=== PATIENT | male | born 1985 | race Caucasian/White ===

== ENCOUNTER 2020-03-25 23:59 | Emergency (ER) | payer SELFPAY ==
[2020-03-26] VITALS: BP 125/93; PULSE 100; RESP 14; TEMP 37.4; O2SAT 97; BMI 30.9
--- NOTE | 2020-03-26 00:18 | ED.VIS.GEN ---
History of Present Illness Chief Complaint: Dental Informant: Patient Onset: Yesterday Current Severity: Mild Maximum Severity: Moderate Narrative: Patient presents with left dental pain. He states the tooth was fractured sometime ago but became painful yesterday. He does not have a dentist to follow-up with. He has been taking ibuprofen as well as cannabis to help with pain. Past Medical History - Allergies and Home Meds Allergies/Adverse Reactions: Allergies No Known Allergies Allergy (Verified 03/26/20 00:00) Primary Care Physician: NOT,DEFINED [Primary Care Provider] - Past Medical History: None Smoking Status: Current every day smoker Drugs: Marijuana Review of Systems General: Denies: Chills, Fever Eyes: Denies: Visual changes - bilaterally ENT: Reports: - - Left-sided dental pain. Denies: Bilateral ear pain Cardiovascular: Denies: Chest pain Respiratory: Denies: Dyspnea, Cough Gastrointestinal: Denies: Abdominal pain Skin: Denies: Rash Neurological: Denies: Headache Hematologic: Denies: Easy bruising, Easy bleeding Allergy: Denies: Uticaria Physical Exam Vital Signs/Narrative: Vital Signs Temp Pulse Resp BP Pulse Ox 03/26/20 00:00 99.4 F H 100 14 125/93 H 97 Inital Vital Signs reviewed: Yes General: Well nourished, Well developed Head: Normocephalic Eyes: Perrl, EOMI ENT: Moist mucous membranes, - - No facial edema or erythema. Left mandibular first molar is decayed with a fracture. Mild surrounding gum edema. Posterior pharynx exam is normal. No trismus. Neck: Supple, - - Mild bilateral cervical lymphadenopathy. Cardiovascular: Regular rate, Regular rhythm, No murmurs Respiratory: No distress, CTA bilaterally Abdomen: Soft, Nontender Extremities: Nontender Skin: Normal color Neurological: Alert, Oriented x3 Psychological: Normal affect Diagnostic/Tx/Re-eval - Medical Decision Making Patient be treated with a course of Pen-Vee K. He will continue ibuprofen. Dental referral list is provided. ED Disposition - Plan for ED Patient: Disposition: Home or Assisted Living Diagnosis: Odontalgia Instructions: ED Tooth Pain Prescriptions: Penicillin V Potassium 500 mg PO 4X/DAY #40 tablet Additional Instructions: Dental list provided.
[2020-03-26] MEDS: Penicillin Vk 250 MG Tablet 500 MG PO (00:34)
[2020-03-26 00:37] VITALS: RESP 14
== END 2020-03-26 00:38 | disposition home or self-care (01) ==
LOC: ED 03-26 00:25
PROVIDERS: Emergency Provider Emergency Medicine
DX: K08.89 Other specified disorders of teeth and supporting structures (principal); F17.200 Nicotine dependence, unspecified, uncomplicated
CPT/HCPCS: 99283

== ENCOUNTER 2020-04-24 12:29 | Emergency (ER) | payer SELFPAY ==
[2020-04-24 12:31] VITALS: BP 123/77; PULSE 68; RESP 14; TEMP 36.9; O2SAT 98; BMI 30.4
--- NOTE | 2020-04-24 12:46 | ED.VISSUMM ---
- ER Visit Summary Date of Service: 04/24/20 Chief Complaint: [Foreign body sensation] History of Present Illness: The patient is a 35 M [presents the emergency department with complaint of a foreign body sensation in his throat that he has had for the last 3 days. Patient states that 3 days ago he was eating a baby Haleigh candy bar prior to taking his clindamycin antibiotic when he felt like something irritated or scratched his throat. He had no real cough. He is not been feeling short of breath. Patient states that he could feel something move in his upper throat when he would swallow and he would feel irritated. He continues to have that sensation. He is able to eat and drink. Patient's not had any fevers. No recent illness. Muir has history of ADHD and inflammatory bowel disease.] Physical Examination: [HEENT-PERRLA, EOMI. Cranial nerves II through XII grossly intact. TMs clear. Mucous membranes moist. No adenopathy. Nonerythematous. No foreign bodies noted on exam. Cardiovascular-regular rate and rhythm without murmur or ectopy Lungs-clear to auscultation, chest wall stable without crepitus or subcu emphysema Abdomen-normoactive bowel sounds, soft, nontender, no rebound or rigidity, no peritoneal signs. Extremities-intact ?4, normal range of motion, normal pulses, atraumatic] Test Results: [Chest x-ray ordered and was read by radiology as normal] Emergency Department Course and Treatment: [Patient given a GI cocktail. Patient states the GI cocktail did not make any difference in his sensation. Patient was able to drink in the department without difficulty.] Case was discussed with general surgeon on-call Dr. Дмитрий Samano who will see patient in his office after discharge from ER to potentially schedule outpatient EGD to further evaluate. Treatment Plan: [At this point patient will be referred to general surgery for follow-up if symptoms do not resolve may need further evaluation such as possibly EGD.] Disposition: [Discharged home in stable condition] Impression: [Dysphasia Foreign body sensation] This note was generated with [employer] dictation software. It may contain incorrect words, spelling, and punctuation that were not noted in review of the chart prior to signing ED Disposition - Plan for ED Patient: Referrals: Care Physician,No Primary [Primary Care Provider] -
[2020-04-24] MEDS: Mag Hydrox/Al Hydrox/Simeth 30 ML UDC PO (13:03)
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
--- NOTE | 2020-04-24 14:19 | ED.DEP ---
ED Disposition - Plan for ED Patient: Instructions: ED Foreign Body Swallowed, ED Dysphagia Adult Prescriptions: Lansoprazole [Prevacid] 30 mg PO DAILY #30 cap Prescription Printed Referrals: Care Physician,No Primary [Primary Care Provider] - Дмитрий Samano MD [STAFF PHYSICIAN] - As soon as possible
== END 2020-04-24 14:25 | disposition home or self-care (01) ==
LOC: ED 12:59
PROVIDERS: Emergency Provider Emergency Medicine
DX: R47.02 Dysphasia (principal); Z72.0 Tobacco use
CPT/HCPCS: 71046; 99283; A4216